=== PATIENT | female | born 1985 | race Two or more races ===

== ENCOUNTER 2021-09-22 13:40 | Emergency (ER) | payer OTHER ==
[~2021-09-22] VITALS: Ht 157.5 cm; Wt 50.8 kg
[2021-09-22] MEDS ORDERED: PEPCID AC20 MG PO (21:12)
== END 2021-09-22 21:26 | disposition home or self-care (01) ==
LOC: ER 13:40
DX: K52.9 Noninfective gastroenteritis and colitis, unspecified (principal); E86.0 Dehydration; Z88.0 Allergy status to penicillin; Z20.822 Contact with and (suspected) exposure to COVID-19

== ENCOUNTER 2023-04-30 10:03 | Outpatient (CLI) | payer OTHER ==
[~2023-04-30 10:03] MED LIST: FOLIC ACID0.8 M1 PO; ONDANSETRON HCL4 MG PO; PEPCID AC20 MG PO; PHENERGAN25 MG PO; PROCHLORPERAZINE5 MG PO
== END 2023-04-30 10:57 | disposition home or self-care (01) ==
LOC: PRENATAL 10:03
PROVIDERS: ATTEND Obstetrics & Gynecology Maternal & Fetal Medicine
DX: O36.80X0 Pregnancy with inconclusive fetal viability, not applicable or unspecified (principal); Z36.82 Encounter for antenatal screening for nuchal translucency; Z36.9 Encounter for antenatal screening, unspecified; O09.519 Supervision of elderly primigravida, unspecified trimester; Z3A.11 11 weeks gestation of pregnancy

== ENCOUNTER 2023-06-29 13:16 | Outpatient (CLI) | payer OTHER | END 2023-06-29 13:17 | disposition home or self-care (01) | LOC: PRENATAL 13:16 | PROVIDERS: ATTEND Obstetrics & Gynecology Maternal & Fetal Medicine | DX: O35.9XX0 Maternal care for (suspected) fetal abnormality and damage, unspecified, not applicable or unspecified (principal); O35.3XX0 Maternal care for (suspected) damage to fetus from viral disease in mother, not applicable or unspecified; O09.519 Supervision of elderly primigravida, unspecified trimester; Z3A.19 19 weeks gestation of pregnancy ==

== ENCOUNTER 2023-10-28 15:47 | Outpatient (CLI) | payer OTHER | END 2023-10-28 15:48 | disposition home or self-care (01) | LOC: PRENATAL 15:47 | PROVIDERS: ATTEND Obstetrics & Gynecology Maternal & Fetal Medicine | DX: O26.849 Uterine size-date discrepancy, unspecified trimester (principal); O36.8199 Decreased fetal movements, unspecified trimester, other fetus; O09.519 Supervision of elderly primigravida, unspecified trimester; Z3A.37 37 weeks gestation of pregnancy ==